=== PATIENT | male | born 1975 | race Caucasian/White ===

== ENCOUNTER 2021-12-02 22:47 | Emergency (ER) | payer OTHER ==
[2021-12-03 03:37] VITALS: BP 135/88
[2021-12-03] MEDS ORDERED: LIDOCAINE 1% HCL (LOCAL ANESTH.) INJ 20ML MDV IJ ONE (04:00)
[2021-12-03] MEDS ORDERED: AMOX-277 PO (04:21)
== END 2021-12-03 04:29 | disposition home or self-care (01) ==
LOC: ER 22:47
DX: S01.81XA Laceration without foreign body of other part of head, initial encounter (principal); W54.0XXA Bitten by dog, initial encounter; Y93.89 Activity, other specified; Y92.89 Other specified places as the place of occurrence of the external cause; Y99.8 Other external cause status
CPT/HCPCS: 12011